=== PATIENT | male | born 1995 | race Caucasian/White ===

== ENCOUNTER → 2019-09-06 15:10 | Outpatient (CLI) | payer BC, SELFPAY ==
--- NOTE | 2019-09-06 | DI.CT.S_ITS ---
PROCEDURE: CT UE LT WO CON INDICATIONS: Unspecified fracture of navicular [scaphoid] bone TECHNIQUE: Noncontrast 1 mm axial sections acquired through the carpal bones, with coronal and sagittal reformats. COMPARISON: [facility] Outside Film, CR, XR WRIST 3+ VIEWS LEFT, 08/29/2019, 11:52. FINDINGS: Image quality: Diagnostic. Bones: There is a transverse fracture identified involving the waist of the scaphoid without significant offset of the fracture fragments. No callus formation is appreciated. No widening of the scapholunate joint is evident. No additional acute fractures are appreciated. Minimal degenerative cystic change may be present involving the lunate. Soft tissues: There is edema about the wrist with a probable radiocarpal joint effusion. No loculated fluid collections are evident. No soft tissue masses are appreciated. Please note that evaluation of the ligamentous, tendinous, and cartilaginous structures of the wrist is inadequate on CT. No significant atrophy is appreciated involving the intrinsic muscles of the wrist. IMPRESSION: Nondisplaced scaphoid fracture. No definitive healing is appreciated. Dictated by: Jesús Parker M.D. on 09/06/2019 at 14:56 Approved by: Jesús Parker M.D. on 09/06/2019 at 14:59
== END ==
PROVIDERS: Visit Provider Physician Assistant Surgical
DX: S62.002A Unspecified fracture of navicular [scaphoid] bone of left wrist, initial encounter for closed fracture (principal); X58.XXXA Exposure to other specified factors, initial encounter
CPT/HCPCS: 73200

== ENCOUNTER → 2021-12-17 16:03 | Outpatient (CLI) | payer OTHER, SELFPAY ==
[2021-12-17 16:54] LABS: COVID19 -Nasal RAPID Negative (Negative)
== END ==
PROVIDERS: Visit Provider Student in an Organized Health Care Education/Training Program
DX: Z20.822 Contact with and (suspected) exposure to COVID-19 (principal)
CPT/HCPCS: 87635

== ENCOUNTER 2021-12-18 07:55 | Day surgery (SDC) | payer OTHER, SELFPAY ==
[2021-12-18 08:05] VITALS: BP 116/67; PULSE 72; RESP 16; TEMP 36.7; O2SAT 98; BMI 24.7
--- NOTE | 2021-12-18 08:37 | PM.HP.1 ---
History of Present Illness History of Present Illness Date Patient Seen: 12/18/21 Time Patient Seen: 08:37 Chief complaint: SDC Narrative: Patient is a very pleasant 26-year-old male who presented for further evaluation of change in bowel habits with constipation. Patient History Medical History (Updated 12/17/21 @ 14:38 by Margot Miranda RN) Abdominal pain Constipation Foot fracture, right (~2016) Family & Social History Social History: household members family Tobacco & Substance use: Smoking Status Never smoker alcohol intake never Substance Use Type marijuana Meds Home Medications and Allergies Home Medications Medication Instructions Recorded Confirmed Type polyethylene glycol 3350 17 g 12/17/21 History gram/dose oral powder Allergies Allergy/AdvReac Type Severity Reaction Status Date / Time No Known Drug Allergies Allergy Verified 12/17/21 14:37 Review of Systems Review of Systems ROS: Yes All systems reviewed with the patient and are negative except as otherwise documented Exam Vital Signs (past 8 hours): - 12/18/21 08:05 Temperature 98.1 F Pulse Rate 72 Respiratory Rate 16 Blood Pressure 116/67 Pulse Oximetry 98 Oxygen Delivery Method Room Air Const General: cooperative, healthy appearing, comfortable, well developed, well groomed and No acute distress HENMT Head: normocephalic and atraumatic Resp Effort & Inspection: normal respiratory effort, able to speak in complete sentences and no audible wheezes Auscultation: clear to auscultation bilaterally Cardio Rate: regular rate Rhythm: regular rhythm Extrem General: No pedal edema Assessment & Plan Assessment & Plan narrative: 1. Change in bowel habits 2. Constipation improved. Colonoscopy today, further recommendations to follow Time Spent With Patient Critical Care time: I spent a total of [] minutes of critical care time on this patient's care today; this time is exclusive of procedural time.
[2021-12-18] MEDS: SODIUM CHLORIDE 0.9% 1,000 ML 70 ML IV (08:42)
--- NOTE | 2021-12-18 09:09 | PM.OP.COLON ---
Operative Date/Time/Diagnoses Date of procedure: 12/18/21 Time of procedure: 08:50 Procedure Notes Procedure in detail: Surgeon: Angelia Wells DO Procedure: Colonoscopy Preoperative diagnosis: Change in bowel habits, constipation Postoperative diagnosis: Grade 1 internal hemorrhoids, otherwise normal colonoscopy to terminal ileum Medications: Monitored anesthesia care, see Anesthesia note Preanesthesia Assessment An H and P was performed/updated and the Px?s ASA class is 1. The procedure was discussed in detail with the patient. The potential risks and complications including infection, bleeding, missed lesions, perforation, need for surgery in case of perforation, prolonged hospital stay, and were explained. A brief question and answer period was allotted and once all questions were answered, informed consent was obtained. The patient was brought back to the procedure room and placed on standard monitoring. The patient?s vital signs were monitored continuously throughout the entire procedure. Prior to starting, a timeout was performed to confirm the patient?s identity, allergies, medications, and procedure. Procedure in detail The patient was placed in left lateral decubitus position and once adequate sedation was obtained a LILLIAN was performed. The digital rectal examination did not reveal any palpable lesions. The tip of the colonoscope was placed in the anal canal and advanced without difficulty all the way to the terminal ileum. The cecum which was identified by the appendiceal orifice and the ileocecal valve. Careful examination of all maradi[place] of the colon was performed with irrigation of any residual stool. The patient tolerated the procedure well and will be brought back to the recovery area to be discharged once criteria are met. The prep was judged to be good/excellent and adequate to identify polyps less than 5 mm. The withdrawal time was 11min. Complications There were no complications and estimated blood loss was minimal. Recommendations: Resume previous diet Continue outPx medications Repeat colonoscopy at age 44 for screening Office follow up as previously scheduled An emergency contact number was given to the patient for any complications related to the procedure
[2021-12-18 09:11] VITALS: BP 96/53; PULSE 46; RESP 16; TEMP 36.4; O2SAT 98
[2021-12-18 09:15] VITALS: BP 96/67; PULSE 51; RESP 16; O2SAT 99
[2021-12-18 09:20] VITALS: BP 96/60; PULSE 51; RESP 14; O2SAT 99
[2021-12-18 09:25] VITALS: BP 95/68; PULSE 48; RESP 16; O2SAT 98
[2021-12-18 09:30] VITALS: BP 98/65; PULSE 47; RESP 16; TEMP 36.6; O2SAT 100
== END 2021-12-18 09:48 | disposition home or self-care (01) ==
PROVIDERS: Student in an Organized Health Care Education/Training Program; PCP Physician Assistant Medical; Referring Provider Internal Medicine Gastroenterology; Visit Provider Internal Medicine Gastroenterology
PROC: 0DJD8ZZ Inspection of Lower Intestinal Tract, Via Natural or Artificial Opening Endoscopic (ICD-10-PCS; CPT 45378; principal; 2021-12-18 09:00)
DX: K59.00 Constipation, unspecified (principal); K64.0 First degree hemorrhoids
CPT/HCPCS: 45378; J2704